=== PATIENT | female | born 1990 | race Two or more races ===

== ENCOUNTER 2016-12-10 01:09 | Emergency (ER) | payer OTHER, MEDICAID ==
[~2016-12-10] VITALS: Ht 160 cm; Wt 58.1 kg
[2016-12-10] MEDS: KETOROLAC TROMETHAMINE 30 MG INJ IM ONE (01:25)
[2016-12-10] MEDS ORDERED: KETOROLAC TROMETHAMINE 30 MG INJ ONE (01:31)
== END 2016-12-10 01:37 | disposition home or self-care (01) ==
LOC: ER 01:14
DX: M54.5 Low back pain (principal); M62.830 Muscle spasm of back
CPT/HCPCS: A4663; J1885

== ENCOUNTER 2020-04-27 15:10 | Emergency (ER) | payer BC, MEDICAID ==
[~2020-04-27] VITALS: Ht 157.5 cm; Wt 65.8 kg
== END 2020-04-27 15:47 | disposition home or self-care (01) ==
LOC: ER 15:20
DX: T81.31XD Disruption of external operation (surgical) wound, not elsewhere classified, subsequent encounter (principal)
CPT/HCPCS: A4663

== ENCOUNTER 2020-05-07 16:55 | Emergency (ER) | payer BC, MEDICAID ==
[~2020-05-07] VITALS: Ht 157.5 cm; Wt 65.8 kg
--- NOTE | 2020-05-07 17:49 | NUR ---
chaperoned md with examination.
[2020-05-07] MEDS ORDERED: VANCOMYCIN 1G/D5W 200 ML PIGGYBACK IV ONE (18:00)
[2020-05-07] MEDS ORDERED: KETOROLAC TROMETHAMINE 30 MG INJ IVP ONE (18:00)
[2020-05-07] MEDS ORDERED: MORPHINE SULFATE 2 MG/1 ML DISP.SYRIN IV ONE (18:00)
[2020-05-07] MEDS ORDERED: IV NORMAL SALINE 1000 ML BAG IV ONE (18:00)
[2020-05-07] MEDS ORDERED: IV NORMAL SALINE 250 ML IV ONE (18:03)
[2020-05-07] MEDS ORDERED: IOHEXOL 300MG/ML 100 ML INFUS..BTL ONE (18:03)
[2020-05-07] MEDS ORDERED: SWABABLE VALVE TRANSFER SET EA MC ONE (18:03)
[2020-05-07] MEDS ORDERED: MORPHINE SULFATE 2 MG/1 ML DISP.SYRIN ONE (18:11)
[2020-05-07] MEDS ORDERED: VANCOMYCIN IV 200 ML ONE (18:12)
[2020-05-07] MEDS ORDERED: KETOROLAC TROMETHAMINE 30 MG INJ ONE (18:12)
--- NOTE | 2020-05-07 18:22 | NUR ---
PT IS IN ROOM #2A. DR TOLLIVER EVALUATED THE PT.
[2020-05-07 18:56] LABS: BASOPHILS % (AUTO) 0.4 % (0.0-2.0); EOSINOPHILS # (AUTO) 0.1 K/uL (0.0-0.7); HEMATOCRIT 37.7 % (31.2-41.9); HEMOGLOBIN 12.9 g/dL (10.9-14.3); LYMPHOCYTES # (AUTO) 2.2 K/uL (20.0-40.0); MEAN CORPUSCULAR HEMOGLOBIN 32.2 uug (24.7-32.8); MEAN CORPUSCULAR HGB CONC 34 g/dL (32.3-35.6); MONOCYTES # (AUTO) 0.4 K/uL (2.0-10.0); MONOCYTES % (AUTO) 7.1 % (0.0-11.0); NEUTROPHILS # (AUTO) 2.6 K/uL (1.8-8.9); NEUTROPHILS % (AUTO) 48.5 % (38.5-71.5); PLATELET COUNT (AUTO) 273 K/uL (179-408); RED BLOOD CELL COUNT(AUTO) 4.01 MIL/uL (3.63-4.92); WHITE BLOOD COUNT (AUTO) 5.3 K/uL (3.8-11.8)
[2020-05-07 18:59] LABS: CREATININE 0.8 mg/dL (0.6-1.3); POTASSIUM 3.5 mmol/L (3.5-5.1)
[2020-05-07 19:05] LABS: BILIRUBIN,DIRECT 0.1 mg/dL (0.0-0.2); BILIRUBIN,TOTAL 0.3 mg/dL (0.2-1.0)
[2020-05-07] MEDS ORDERED: SULFAMETH/TRIMETH 800/160 MG TABLET PO ONE (20:30)
[2020-05-07] MEDS ORDERED: CEphaleXIN 500 MG CAPSULE PO ONE (20:30)
--- NOTE | 2020-05-07 20:32 | NUR ---
Vancomoycin infusion completed, patient tolereated well.
[2020-05-07] MEDS ORDERED: CEphaleXIN 500 MG CAPSULE ONE (20:35)
[2020-05-07] MEDS ORDERED: SULFAMETH/TRIMETH 800/160 MG TABLET ONE (20:35)
--- NOTE | 2020-05-07 20:36 | NUR ---
Patient discharged to home in stable condition. Written and verbal after care instructions given. Patient verbalizes understanding of instructions. Stressed follow up or return to ER for worsening s/s. Patient left with satble gait.
[2020-05-07 20:37] VITALS: BP 129/71
== END 2020-05-07 20:37 | disposition home or self-care (01) ==
LOC: ER 16:56
DX: T81.49XA Infection following a procedure, other surgical site, initial encounter (principal); L03.311 Cellulitis of abdominal wall; T81.31XD Disruption of external operation (surgical) wound, not elsewhere classified, subsequent encounter
CPT/HCPCS: 36415; 74177; 80048; 80076; 85025; 96365; 96375; 99285; J1885; J2270; J3370; Q9967; A4663; J7030; J7050

== ENCOUNTER 2020-05-14 16:58 | Emergency (ER) | payer MEDICAID ==
[~2020-05-14] VITALS: Ht 157.5 cm; Wt 65.8 kg
--- NOTE | 2020-05-14 17:14 | NUR ---
DR. RUBIO AT BEDSIDE TO EXAMINE PATIENT.
--- NOTE | 2020-05-14 17:48 | NUR ---
Patient discharged to home in stable condition. Written and verbal after care instructions given. Patient verbalizes understanding of instructions. Stressed follow up or return to ER for worsening s/s.
== END 2020-05-14 17:49 | disposition home or self-care (01) ==
LOC: ER 16:59
DX: T81.31XD Disruption of external operation (surgical) wound, not elsewhere classified, subsequent encounter (principal)
CPT/HCPCS: A4663

== ENCOUNTER 2022-06-27 00:22 | Emergency (ER) | payer BC, OTHER ==
[~2022-06-27] VITALS: Ht 157.5 cm; Wt 71.2 kg
--- NOTE | 2022-06-27 00:38 | NUR ---
Seeing and being examined by Dr. Guerin
[2022-06-27] MEDS ORDERED: ONDANSETRON ODT 4 MG TAB.RAPDIS SL ONE (00:45)
[2022-06-27] MEDS ORDERED: HYDROCODONE/APAP 10-325 MG TABLET PO ONE (00:45)
[2022-06-27] MEDS ORDERED: HYDROCODONE/APAP 10-325 MG TABLET ONE (00:51)
[2022-06-27] MEDS ORDERED: ONDANSETRON ODT 4 MG TAB.RAPDIS ONE (00:52)
--- NOTE | 2022-06-27 00:55 | NUR ---
pt. refused zofran, pain pill taken.
[2022-06-27] MEDS ORDERED: ONDA4TAB5 PO (01:58)
[2022-06-27] MEDS ORDERED: HYDR-4209 PO (01:58)
[2022-06-27] MEDS ORDERED: PRED20TA PO (01:58)
[2022-06-27] MEDS ORDERED: predniSONE 20 MG TABLET PO ONE (02:00)
[2022-06-27] MEDS ORDERED: predniSONE 20 MG TABLET ONE (02:06)
[2022-06-27 02:11] VITALS: BP 122/80
== END 2022-06-27 02:11 | disposition home or self-care (01) ==
LOC: ER 00:22
DX: J40 Bronchitis, not specified as acute or chronic (principal); Z20.822 Contact with and (suspected) exposure to COVID-19
CPT/HCPCS: 99284; 71045; 87426; 87400; J7512; A4663; Q0162

== ENCOUNTER 2023-03-23 17:35 | Emergency (ER) | payer BC, OTHER ==
[~2023-03-23] VITALS: Ht 157.5 cm; Wt 71.2 kg
[~2023-03-23 17:35] MED LIST: HYDR-4209 PO; ONDA4TAB5 PO; PRED20TA PO
[2023-03-23 17:42] VITALS: O2SAT 94
[2023-03-23] MEDS ORDERED: DEXAMETHASONE SOD PHOSPHATE 10 MG INJ ONE (17:51)
[2023-03-23] MEDS ORDERED: KETOROLAC TROMETHAMINE 15 MG INJ ONE (17:52)
[2023-03-23] MEDS ORDERED: DEXAMETHASONE SOD PHOSPHATE 4 MG INJ IM ONE (18:00)
[2023-03-23] MEDS ORDERED: KETOROLAC TROMETHAMINE 15 MG INJ IM ONE (18:00)
[2023-03-23] MEDS ORDERED: IBUP-1955 PO (18:04)
== END 2023-03-23 18:18 | disposition home or self-care (01) ==
LOC: ER 17:35
DX: U07.1 COVID-19 (principal); J06.9 Acute upper respiratory infection, unspecified; J02.8 Acute pharyngitis due to other specified organisms; B97.89 Other viral agents as the cause of diseases classified elsewhere; R05.9 Cough, unspecified; R09.81 Nasal congestion; Z79.899 Other long term (current) drug therapy; Z90.89 Acquired absence of other organs
CPT/HCPCS: 99284; 87635; 36415; 96372 ×2; C9803; J1100; J1885; A4663

== ENCOUNTER 2023-04-13 23:12 | Emergency (ER) | payer BC, OTHER ==
[~2023-04-13] VITALS: Ht 160 cm; Wt 72.1 kg
[~2023-04-13 23:12] MED LIST changes: +IBUP-1955 PO
[2023-04-14] MEDS ORDERED: LIDOCAINE HCL 1% 20 ML VIAL IJ ONE
[2023-04-14] MEDS ORDERED: LORAZEPAM 2 MG/1 ML VIAL IM ONE (00:45)
[2023-04-14] MEDS ORDERED: LORAZEPAM 2 MG/1 ML VIAL ONE (00:47)
[2023-04-14] MEDS ORDERED: LIDOCAINE HCL 2% 20 ML VIAL ONE (00:56)
[2023-04-14] MEDS ORDERED: SULFAMETH/TRIMETH 800/160 MG TABLET ONE (01:11)
[2023-04-14] MEDS ORDERED: SULFAMETH/TRIMETH 800/160 MG TABLET PO ONE (01:15)
[2023-04-14] MEDS ORDERED: LIDOCAINE 1%-EPI 1:100,000 20 ML VIAL ONE (01:40)
[2023-04-14] MEDS ORDERED: HYDR-4209 PO (02:04)
[2023-04-14] MEDS ORDERED: SULF1TAB48 PO (02:04)
[2023-04-14 02:10] VITALS: BP 141/107; O2SAT 97
== END 2023-04-14 02:11 | disposition home or self-care (01) ==
LOC: ER 23:16
DX: N75.1 Abscess of Bartholin's gland (principal); Z79.1 Long term (current) use of non-steroidal anti-inflammatories (NSAID); Z79.899 Other long term (current) drug therapy
CPT/HCPCS: 99283; 96372; J3490 ×2; J2060; A4663

== ENCOUNTER 2024-07-05 21:45 | Emergency (ER) | payer BC, MEDICAID, OTHER ==
[~2024-07-05] VITALS: Ht 157.5 cm; Wt 76.2 kg
[~2024-07-05 21:45] MED LIST changes: +SULF1TAB48 PO
[2024-07-05 22:10] LABS: *BILIRUBIN,URIN NEGATIVE (NEGATIVE); *BLOOD, URINE 1+ (NEGATIVE); *CLARITY,URINE SLIGHTLY CLOUDY (CLEAR); *COLOR,URINE YELLOW (YELLOW); *KETONES,URINE 1+ (NEGATIVE); *PROTEIN,URINE 1+ (NEGATIVE); LEUKOCYTE ESTERASE ,URINE 1+ (NEGATIVE); NITRITE, URINE NEGATIVE (NEGATIVE); UGLUCOSE NEGATIVE (NEGATIVE)
[2024-07-05 22:17] LABS: BACTERIA,URINE MANY /HPF (NONE SEEN); SQUAMOUS EPITHELIAL CELL,UR MODERATE /HPF (NONE SEEN); WBC,URINE 80-100 /HPF (0-3)
[2024-07-05 22:23] LABS: *URINE HCG, QUAL NEGATIVE (NEGATIVE)
[2024-07-05] MEDS ORDERED: NITR-84 PO (22:48)
[2024-07-05] MEDS ORDERED: PHEN-705 PO (22:48)
[2024-07-05] MEDS ORDERED: NITROFURANTOIN/NITROFURAN MAC 100 MG CAPSULE PO ONE (22:51)
[2024-07-05] MEDS ORDERED: PHENAZOPYRIDINE HCL 100 MG TABLET ONE (22:51)
[2024-07-05] MEDS: PHENAZOPYRIDINE HCL 100 MG TABLET PO ONE (22:54)
[2024-07-05] MEDS: NITROFURANTOIN/NITROFURAN MAC 100 MG CAPSULE PO ONE (22:54)
[2024-07-05 22:56] VITALS: BP 118/75; TEMP 98; O2SAT 98
== END 2024-07-05 22:57 | disposition home or self-care (01) ==
LOC: ER 21:45
DX: N39.0 Urinary tract infection, site not specified (principal); Z79.52 Long term (current) use of systemic steroids; Z88.7 Allergy status to serum and vaccine; Z87.2 Personal history of diseases of the skin and subcutaneous tissue; Z87.09 Personal history of other diseases of the respiratory system
CPT/HCPCS: 84703; A4606; A4663

== ENCOUNTER 2024-08-07 12:45 | Emergency (ER) | payer MEDICAID ==
[~2024-08-07] VITALS: Ht 157.5 cm; Wt 74.8 kg
[~2024-08-07 12:45] MED LIST changes: +NITR-84 PO; +PHEN-705 PO
[2024-08-07 18:34] VITALS: BP 119/66; O2SAT 98
== END 2024-08-07 18:30 | disposition home or self-care (01) ==
LOC: ER 12:45
DX: M23.92 Unspecified internal derangement of left knee (principal); Z79.52 Long term (current) use of systemic steroids; Z79.899 Other long term (current) drug therapy; Z88.7 Allergy status to serum and vaccine
CPT/HCPCS: A4606; A4663